=== PATIENT | male | born 1970 | race African-American/Black ===

== ENCOUNTER 2022-10-06 15:21 | Outpatient (CLI) | payer OTHER | END 2022-10-06 15:22 | disposition home or self-care (01) | LOC: RAD 15:21 | PROVIDERS: ATTEND Internal Medicine | DX: R06.00 Dyspnea, unspecified (principal); J84.9 Interstitial pulmonary disease, unspecified | CPT/HCPCS: 71046 ==

== ENCOUNTER 2023-12-04 11:41 | Outpatient (CLI) | payer OTHER | END 2023-12-04 11:42 | disposition home or self-care (01) | LOC: BICRAD 11:41 | PROVIDERS: ATTEND Student in an Organized Health Care Education/Training Program | DX: R05.1 Acute cough (principal) | CPT/HCPCS: 71046 ==